=== PATIENT | male | born 1945 | race Caucasian/White ===

== ENCOUNTER 2018-11-21 14:38 | Emergency (ER) | payer MEDICARE, BC, SELFPAY ==
[2018-11-21 14:44] VITALS: BP 192/83; PULSE 71; RESP 17; TEMP 36.8; O2SAT 100; BMI 26.4
--- NOTE | 2018-11-21 14:55 | DI.RAD.S_ITS ---
PROCEDURE: XR FOOT RT MIN 3V INDICATIONS: redness, swelling, and tenderness to R MTP join TECHNIQUE: 3 views of the foot were acquired. COMPARISON: None. FINDINGS: Bones: No fractures or dislocations. No well-corticated erosion of the medial aspect of the first metatarsal head measuring 11 mm. Periarticular osteophyte formation and joint space narrowing at the first metatarsophalangeal joint as well as the interphalangeal joint of the first digit. Periarticular osteophyte formation within the mid foot and hindfoot. Calcaneal spurring. Soft tissues: No tibiotalar joint effusion. Achilles tendon appears normal. Soft tissues swelling adjacent to the first metatarsophalangeal joint. IMPRESSION: 1. Findings suggestive of gouty arthropathy involving the right first metatarsophalangeal joint. Clinical correlation recommended. Dictated by: Александр Londono M.D. on 11/21/2018 at 14:30 Approved by: Александр Londono M.D. on 11/21/2018 at 14:32
--- NOTE | 2018-11-21 15:01 | ED.EXTPRO ---
HPI - Extremity Problem <RENYA Del Toro - Last Filed: 11/21/18 22:12> General Chief complaint: Extremity Problem,Nontraumatic Stated complaint: Swollen rt foot Time Seen by Provider: 11/21/18 14:39 Source: patient Mode of arrival: ambulatory Limitations: no limitations History of Present Illness HPI Narrative: 72-year-old male with a history of hypertension presents emergency department today complaining of swelling and redness over the past 4 days to his MIP joint of his right big toe with associated chills starting today. Also reports a constant 2/10 aching pain that is worse with palpation and better with rest. Patient works at [employer] and is on his feet for over 12 hours a day. States this has happened once before 10 years ago and was cleared up with antibiotics. Denies fevers, nausea, vomiting, change in bowel patterns, chest pain, shortness of breath, trauma to the area, history of diabetes, or recently changing shoes. Related Data Home Medications Medication Instructions Recorded Confirmed lisinopril 10 mg PO DAILY 11/21/18 11/21/18 sertraline 50 mg PO DAILY 11/21/18 Previous Rx's Medication Instructions Recorded prednisone 20 mg PO BID #14 tab 11/21/18 Allergies Allergy/AdvReac Type Severity Reaction Status Date / Time No Known Drug Allergies Allergy Verified 11/21/18 14:47 Review of Systems <RENAY Del Toro - Last Filed: 11/21/18 22:12> Review of Systems REVIEW OF SYSTEMS: GENERAL: Denies fever, complains of chills, see HPI.. HENT: No head trauma, hearing loss or sore throat. EYES: No loss of vision, double vision, eye pain, or irritation. CARDIOVASCULAR: No chest pain or syncope. RESPIRATORY: No shortness of breath or cough. GASTROINTESTINAL: No nausea, vomiting, diarrhea, or constipation. GENITOURINARY: No flank pain or dysuria. MUSCULOSKELETAL: Complains of right foot pain, see HPI. INTEGUMENTARY: No rash, lesions, or pruritus. NEURO: No numbness, tingling, memory loss, or confusion. PSYCH: No behavior or mood changes. PFSH <RENAY Del Toro - Last Filed: 11/21/18 22:12> Medical History (Updated 11/21/18 @ 22:00 by RENAY Del Toro) HTN (hypertension) (Chronic) Social History Smoking Status: Never smoker Social History Smoking Status: Never smoker Exam <RENAY Del Toro - Last Filed: 11/21/18 22:12> Initial Vital Signs Initial Vital Signs: Vital Signs Temperature 98.3 F 11/21/18 14:44 Pulse Rate 71 11/21/18 14:44 Respiratory Rate 17 11/21/18 14:44 Blood Pressure 192/83 H 11/21/18 14:44 Pulse Oximetry 100 11/21/18 14:44 PHYSICAL EXAMINATION: GENERAL: Well groomed, alert, and cooperative. Answers questions promptly and appropriately. Vital signs noted. HENT: Normocephalic, atraumatic. EYES: Conjunctiva pink, sclera white, no periorbital swelling. CARDIOVASCULAR: S1 and S2 sounds normal. Regular rate and rhythm, no murmurs, clicks, or bruits. RESPIRATORY: Normal respiratory rate, trachea midline, airway patent. No stridor, nasal flaring or accessory muscle use. Lungs are clear in all enrique without wheeze, rhonchi, or crackles. MUSCULOSKELETAL: Equal tone and mass bilaterally, full range of motion of lower extremities including feet and ankles. EXTREMITIES: CMS intact, pedal pulses equal bilaterally. Slight edema to feet bilaterally however right foot had markedly increased edema as well as slight erythema that was pink in nature versus bright red. Most erythema and swelling was located around the MTP joint of the right foot of the 1st toe. Slightly decreased range of motion of toes due to swelling. Patient reports mild discomfort with palpation. No rashes or lesions noted. Vascular patient's rash noted on bilateral lower legs with increased rash on right leg. SKIN: Other than on right foot, skin is warm, dry, soft, appropriate color for ethnicity. NEURO: Alert and Oriented X 3. Good coordination. No ataxia, or sensory deficits, or cognitive issues. PSYCH: Appropriate affect and mood. <Shukri Minor DO - Last Filed: 11/22/18 20:15> Initial Vital Signs Initial Vital Signs: Vital Signs Temperature 98.3 F 11/21/18 14:44 Pulse Rate 71 11/21/18 14:44 Respiratory Rate 17 11/21/18 14:44 Blood Pressure 192/83 H 11/21/18 14:44 Pulse Oximetry 100 11/21/18 14:44 Course <RENAY Del Toro - Last Filed: 11/21/18 22:12> Orders Ordered: ED Orders 11/21/18 14:55 XR foot RT min 3V Stat 11/21/18 15:15 Complete Blood Count AUTO DIFF Stat Comprehensive Metabolic Panel Stat Uric Acid Stat Consultations Consultation #1: Patient staffed with Dr. Minor. Vital Signs - 8 hr 11/21/18 14:44 11/21/18 16:34 Temperature 98.3 F Pulse Rate 71 67 Respiratory Rate 17 16 Blood Pressure 192/83 H 159/76 H Pulse Oximetry 100 99 <Shukri Minor DO - Last Filed: 11/22/18 20:15> Orders Ordered: ED Orders 11/21/18 14:55 XR foot RT min 3V Stat 11/21/18 15:15 Complete Blood Count AUTO DIFF Stat Comprehensive Metabolic Panel Stat Uric Acid Stat Vital Signs - 8 hr 11/21/18 14:44 11/21/18 16:34 Temperature 98.3 F Pulse Rate 71 67 Respiratory Rate 17 16 Blood Pressure 192/83 H 159/76 H Pulse Oximetry 100 99 MDM - Extremity (Nontraumatic) <RENAY Del Toro - Last Filed: 11/21/18 22:12> Lab Data Result diagrams: 11/21/18 15:15 11/21/18 15:15 Lab Results 11/21/18 11/21/18 Range/Units 15:15 15:15 WBC 5.9 (4.5-11.0) X10^3/uL RBC 3.85 L (4.5-5.9) X10^6/uL Hgb 10.7 L (13.5-17.5) g/dL Hct 32.0 L (41-53) % MCV 82.9 (80-100) fL MCH 27.8 (26-34) PG MCHC 33.6 (30-36) % RDW 13.8 (11.6-14.8) % Plt Count 333 (150-400) X10^3/uL Neut % (Auto) 63.2 (50-75) % Lymph % (Auto) 24.4 L (25-40) % [place] % (Auto) 9.0 (3-14) % Eos % (Auto) 2.5 (2-4) % Baso % (Auto) 0.9 (0-2) % Neut # (Auto) 3700 (0510-2743) /uL Lymph # (Auto) 1400 (6219-7651) /uL [place] # (Auto) 500 (0-900) /uL Eos # (Auto) 100 (0-450) /uL Baso # (Auto) 100 (0-100) /uL Sodium 141 (137-145) mmol/L Potassium 4.2 (3.4-5.1) mmol/L Chloride 105 (98-107) mmol/L Carbon Dioxide 25 (22-32) mmol/L BUN 24 H (9-20) mg/dL Creatinine 1.50 H (0.66-1.25) mg/dL Estimated GFR 46.1 L (>60) mL/min BUN/Creatinine Ratio 16.0 (6-22) Glucose 89 (80-110) mg/dL Uric Acid 6.3 (3.5-8.5) mg/dL Calcium 8.7 (8.4-10.2) mg/dL Total Bilirubin 0.8 (0.2-1.3) mg/dL AST 23 (17-59) IU/L ALT 20 L (21-72) IU/L Alkaline Phosphatase 69 (38-126) U/L Total Protein 7.1 (6.3-8.2) g/dL Albumin 4.1 (3.5-5.0) g/dL Globulin 3.0 (1.7-4.1) g/dL Albumin/Globulin Ratio 1.4 (1.0-2.8) Imaging Data Left foot XR: Radiologist's impression: [address] [address] XRay Report Signed Patient: Dave Brooks LMR#: [id number] : 7Acct:[id number] Age/Sex: 72 / MDate of Service: 11/21/18 Loc: ED Accession Number: [id number] Procedure: XR foot RT min 3V Ordering Provider: Fiona Bland PROCEDURE: XR FOOT RT MIN 3V INDICATIONS: redness, swelling, and tenderness to R MTP join TECHNIQUE: 3 views of the foot were acquired. COMPARISON: None. FINDINGS: Bones: No fractures or dislocations. No well-corticated erosion of the medial aspect of the first metatarsal head measuring 11 mm. Periarticular osteophyte formation and joint space narrowing at the first metatarsophalangeal joint as well as the interphalangeal joint of the first digit. Periarticular osteophyte formation within the mid foot and hindfoot. Calcaneal spurring. Soft tissues: No tibiotalar joint effusion. Achilles tendon appears normal. Soft tissues swelling adjacent to the first metatarsophalangeal joint. IMPRESSION: 1. Findings suggestive of gouty arthropathy involving the right first metatarsophalangeal joint. Clinical correlation recommended. Dictated by: Александр Londono M.D. on 11/21/2018 at 14:30 Approved by: Александр Londono M.D. on 11/21/2018 at 14:32 MDM Narrative Medical decision making narrative: Patient's symptoms most likely caused by gout due to x-ray findings, exam, gradual onset family history of gout. Less likely cellulitis due to lack of intense erythema, lack of wound, normal CBC, non febrile, and only slightly increased warmth to area on examination. Less likely fracture due to lack of findings on x-ray and lack of history of trauma. Patient instructed to follow up with primary care provider next few days. Extensive education was given about the possibility of cellulitis what to look for if symptoms get worse, strict return precautions discussed. <Shukri Minor, DO - Last Filed: 11/22/18 20:15> Lab Data Lab Results 11/21/18 11/21/18 Range/Units 15:15 15:15 WBC 5.9 (4.5-11.0) X10^3/uL RBC 3.85 L (4.5-5.9) X10^6/uL Hgb 10.7 L (13.5-17.5) g/dL Hct 32.0 L (41-53) % MCV 82.9 (80-100) fL MCH 27.8 (26-34) PG MCHC 33.6 (30-36) % RDW 13.8 (11.6-14.8) % Plt Count 333 (150-400) X10^3/uL Neut % (Auto) 63.2 (50-75) % Lymph % (Auto) 24.4 L (25-40) % [place] % (Auto) 9.0 (3-14) % Eos % (Auto) 2.5 (2-4) % Baso % (Auto) 0.9 (0-2) % Neut # (Auto) 3700 (8411-4489) /uL Lymph # (Auto) 1400 (6396-1763) /uL [place] # (Auto) 500 (0-900) /uL Eos # (Auto) 100 (0-450) /uL Baso # (Auto) 100 (0-100) /uL Sodium 141 (137-145) mmol/L Potassium 4.2 (3.4-5.1) mmol/L Chloride 105 (98-107) mmol/L Carbon Dioxide 25 (22-32) mmol/L BUN 24 H (9-20) mg/dL Creatinine 1.50 H (0.66-1.25) mg/dL Estimated GFR 46.1 L (>60) mL/min BUN/Creatinine Ratio 16.0 (6-22) Glucose 89 (80-110) mg/dL Uric Acid 6.3 (3.5-8.5) mg/dL Calcium 8.7 (8.4-10.2) mg/dL Total Bilirubin 0.8 (0.2-1.3) mg/dL AST 23 (17-59) IU/L ALT 20 L (21-72) IU/L Alkaline Phosphatase 69 (38-126) U/L Total Protein 7.1 (6.3-8.2) g/dL Albumin 4.1 (3.5-5.0) g/dL Globulin 3.0 (1.7-4.1) g/dL Albumin/Globulin Ratio 1.4 (1.0-2.8) Discharge Plan Departure Patient Disposition: Home Clinical Impression: Gout Discharge Date/Time: 11/21/18 16:36 Interventions: ED Discharge Assessment Last Done: 11/21/18 16:34 Instructions: DI for Gout Activity Restrictions/Additional Instructions: Thank you for entrusting me with your care today. As discussed, I believe your symptoms are caused from gout. I prescribed some steroids to take daily for a week, that should reduce her symptoms. Please call your primary care provider in the next few days to schedule an appointment for follow-up. As discussed monitor your leg closely for increased swelling, increased redness, increased pain, fevers, chills or nausea vomiting as these could be signs of an underlying infection, if these occur please return emergency department. Prescriptions: New prednisone 20 mg tablet 20 mg PO BID Qty: 14 RF: 0 No Action lisinopril 10 mg tablet 10 mg PO DAILY RF: 0 sertraline 50 mg tablet 50 mg PO DAILY RF: 0 <Shukri Minor DO - Last Filed: 11/22/18 20:15> [facility] Attestation: I was available for consultation during this patient's emergency department encounter
[2018-11-21 15:24] LABS: Add Manual Diff / Slide Review NO; Basophils Absolute Auto 100 /uL (0-100); Basophils Percent Auto 0.9 % (0-2); Eosinophils Absolute Auto 100 /uL (0-450); Eosinophils Percent Auto 2.5 % (2-4); Hemoglobin 10.7 g/dL (13.5-17.5); Lymphocytes Absolute Auto 1400 /uL (1100-4500); Lymphocytes Percent Auto 24.4 % (25-40); Mean Corpuscular HGB Conc 33.6 % (30-36); Mean Corpuscular Hemoglobin 27.8 PG (26-34); Mean Corpuscular Volume 82.9 fL (80-100); Monocytes Absolute Auto 500 /uL (0-900); Neutrophils Absolute Auto 3700 /uL (1500-7000); Neutrophils Percent Auto 63.2 % (50-75); Platelet Count 333 X10^3/uL (150-400); Red Blood Cell Count 3.85 X10^6/uL (4.5-5.9); Red Cell Distribution Width 13.8 % (11.6-14.8); White Blood Cell Count 5.9 X10^3/uL (4.5-11.0)
[2018-11-21 15:44] LABS: Alanine Aminotransferase 20 IU/L (21-72); Albumin 4.1 g/dL (3.5-5.0); Albumin Globulin Ratio 1.4 (1.0-2.8); Alkaline Phosphatase 69 U/L (38-126); Aspartate Aminotransferase 23 IU/L (17-59); Bilirubin Total 0.8 mg/dL (0.2-1.3); Blood Urea Nitrogen 24 mg/dL (9-20); Calcium 8.7 mg/dL (8.4-10.2); Carbon Dioxide 25 mmol/L (22-32); Chloride 105 mmol/L (98-107); Estimated Glomerular Filt Rate 46.1 mL/min (>60); Glucose 89 mg/dL (80-110); HEMOLYSIS < 15 (0-50); Potassium 4.2 mmol/L (3.4-5.1); Sodium 141 mmol/L (137-145); Total Protein 7.1 g/dL (6.3-8.2); Uric Acid 6.3 mg/dL (3.5-8.5)
[2018-11-21 16:34] VITALS: BP 159/76; PULSE 67; RESP 16; O2SAT 99
== END 2018-11-21 16:36 | disposition home or self-care (01) ==
PROVIDERS: Emergency Provider Nurse Practitioner
DX: M10.9 Gout, unspecified (principal)
CPT/HCPCS: 36415; 73630; 80053; 84550; 85025; 99282; 99284